=== PATIENT | female | born 2000 | race Caucasian/White ===

== ENCOUNTER 2025-01-21 16:31 | Emergency (ER) | payer OTHER, SELFPAY ==
[2025-01-21 16:36] VITALS: BP 121/60; PULSE 71; TEMP 36.8; O2SAT 99
--- NOTE | 2025-01-21 16:50 | ED.GENADUL1 ---
HPI HPI - General Adult General Stated complaint: SE BY DOCTOR TANIA Time Seen by Provider: 01/21/25 16:43 Source: patient Mode of arrival: walk-in History of Present Illness HPI narrative: The patient is a 24-year-old female who presents to the emergency department today for evaluation concerns for nausea and vomiting in the setting of first trimester . She endorses she found out she was on 01/18. She reports she has documented IUP with twins and reports her LMP to be 12/03 (). She endorses she has had symptoms of nausea/vomiting over the past few days. She mention she was at [facility] yesterday for the symptoms in which she received IV fluids and antiemetics and felt overall better. She mention she was seen by her EDUCATIONAL TECHNOLOGY COORDINATOR today and subsequent advised to come to the ER for additional IV fluids due to ongoing nausea and vomiting despite taking Zofran at home. Dizziness or syncope. No chest pain, shortness of breath. She does endorse some lower abdominal discomfort but attributes this to having episodes of emesis. She denies any diarrhea. No urinary symptoms or back/flank pain. She denies any vaginal discharge or bleeding. Related Data Allergies Allergy/AdvReac Type Severity Reaction Status Date / Time No Known Drug Allergies Allergy Verified 01/21/25 17:14 Opioid HPI Opioid Management Most Recent Opioid Data: Last Pain Scale 6 Today, 16:36 Review of Systems ROS Status of ROS 10 or more systems reviewed and unremarkable except as noted in history and below PFSH PFSH Social History Little interest or pleasure in doing things: not at all Feeling down, depressed, or hopeless: not at all Exam Narrative Exam Narrative: Constituational: Awake/ alert, no apparent distress, well hydrated HENMT: normocephalic, external ears normal, moist oral mucous membranes and oropharynx normal Eyes: EOMI and conjunctivae normal Neck: ROM intact Chest: inspection of chest normal Respiratory: Normal respiratory effort, clear to auscultation bilaterally Cardio: regular rate and regular rhythm GI: soft to palpation and non-tender Back: nontender MSK: ROM intact, +NVI Skin: no rashes or petechiae Neuro: no focal deficits Psych: mental status grossly normal Constitutional Vital Signs, click to edit/add: Last Vital Signs Temp 98.2 F 01/21/25 16:36 Pulse 71 01/21/25 16:36 Resp 20 07/08/25 16:36 BP 121/60 01/21/25 16:36 Pulse Ox 99 01/21/25 16:36 O2 Del Method Room Air 01/21/25 16:36 Course Vital Signs Vital signs: Vital Signs Temperature 98.2 F 01/21/25 16:36 Pulse Rate 71 01/21/25 16:36 Respiratory Rate 20 01/21/25 16:36 Blood Pressure 121/60 01/21/25 16:36 Pulse Oximetry 99 01/21/25 16:36 Oxygen Delivery Method Room Air 01/21/25 16:36 Temperature 98.2 F 01/21/25 16:36 Pulse Rate 71 01/21/25 16:36 Respiratory Rate 20 01/21/25 16:36 Blood Pressure 121/60 01/21/25 16:36 Pulse Oximetry 99 01/21/25 16:36 Oxygen Delivery Method Room Air 01/21/25 16:36 Medical Decision Making MDM Narrative Medical decision making narrative: The patient is a nontoxic-appearing 24-year-old female who presented to the emergency department today for evaluation concerns for nausea and vomiting in early . Initial examination vital signs overall stable. Not appear obviously volume depleted. Complaints other than some mild nausea. Historically patient had been seen by her EDUCATIONAL TECHNOLOGY COORDINATOR and advised to come to the ER for IV fluid replacement. Did receive a liter of IV fluids in addition to Zofran and on reevaluation she reports an overall improvement in general condition. Labs noted significant for mild leukocytosis with WBCs 12 otherwise no significant anemia or thrombocytopenia. Leukocytosis likely reactive 2/2 nausea and vomiting episodes. Electrolytes including renal and hepatic function overall stable with exception to noted hypokalemia with serum K3.0. Patient did receive supportive measures of oral potassium replacement of 40 mEq x 1 dose. Patient was reevaluated multiple times while in the ER and did have clinical improvement with supportive measures as above and was able to keep down some oatmeal in addition to the potassium tablets in the ER. She has otherwise remained hemodynamically stable. Discussed the above findings with the patient and her mother who was present at the bedside including recommendations for supportive care, nausea and vomiting first trimester with hypokalemia. Advised on close follow-up with her EDUCATIONAL TECHNOLOGY COORDINATOR for reevaluation. Patient states she does have Phenergan ordered however it will not be available until tomorrow. Discussed signs and symptoms of any worsening condition and when to consider reevaluation by the emergency department. Patient verbalized an understanding of this and is agreeable with the plan to be discharged home. Medical Records Medical records reviewed: Yes I reviewed the patient's medical records Lab Data Lab results reviewed: Yes I reviewed the patient's lab results Labs: Lab Results 01/21/25 01/21/25 Range/Units 17:10 17:20 WBC 12.3 H (4.0-11.0) 10^3/uL RBC 4.09 L (4.20-5.40) 10^6/uL Hgb 12.4 (12.0-16.0) g/dL Hct 35.5 L (36.0-48.0) % MCV 86.8 (81.0-99.0) fL MCH 30.3 (26.7-34.0) pg MCHC 34.9 (29.9-35.2) g/dL RDW 12.5 (11.0-15.0) % Plt Count 242 (150-450) 10^3/uL MPV 9.7 (9.5-13.5) fL Neut % (Auto) 78.8 H (43.0-75.0) % Lymph % (Auto) 14.6 L (20.5-60.0) % [place] % (Auto) 5.7 (1.7-12.0) % Eos % (Auto) 0.1 L (0.9-7.0) % Baso % (Auto) 0.4 (0.2-2.0) % Neut # (Auto) 9.7 H (1.4-6.5) 10^3/uL Lymph # (Auto) 1.8 (1.2-3.8) 10^3/uL [place] # (Auto) 0.7 (0.3-0.8) 10^3/uL Eos # (Auto) 0.0 (0.0-0.7) 10^3/uL Baso # (Auto) 0.1 (0.0-0.1) 10^3/uL Abs Immat Gran (auto) 0.05 H (0.00-0.03) 10^3/uL Imm/Tot Granulo (auto) 0.4 (0.0-0.5) % Sodium 137 (136-145) mmol/L Potassium 3.0 L (3.5-5.1) mmol/L Chloride 101 (98-107) mmol/L Carbon Dioxide 27.6 (21.0-32.0) mmol/L Anion Gap 11.4 BUN 7.0 (7.0-18.0) mg/dL Creatinine 0.56 (0.55-1.02) mg/dL Est GFR ( Amer) >60 (>=60 mL/min/1.73m^2) Est GFR (Non-Af Amer) >60 (>=60 mL/min/1.73m^2) BUN/Creatinine Ratio 12.5 Glucose 169 H (74-106) mg/dL Calcium 9.0 (8.5-10.1) mg/dL Total Bilirubin 1.1 H (0.2-1.0) mg/dL AST 10 L (15-37) U/L ALT 14 (14-59) U/L Alkaline Phosphatase 43 L (46-116) U/L Total Protein 6.6 (6.4-8.2) g/dL Albumin 3.6 (3.4-5.0) g/dL Globulin 3.0 g/dL Albumin/Globulin Ratio 1.2 Urine Color Lt. yellow (YELLOW) Urine Clarity Clear (CLEAR) Urine pH 6.0 (5.0-9.0) Ur Specific [place] <=1.005 A (1.005-1.025) Urine Protein Negative (NEG/TRACE) mg/dL Urine Glucose (UA) Negative (NEGATIVE) mg/dL Urine Ketones >=80 A (NEGATIVE) mg/dL Urine Occult Blood Negative (NEGATIVE) Urine Nitrite Negative (NEGATIVE) Urine Bilirubin Negative (NEGATIVE) Urine Urobilinogen 0.2 (0.2-1.0) EU/dL Ur Leukocyte Esterase Negative (NEGATIVE) Discharge Plan Discharge Clinical Impression: Nausea and vomiting in , Acute hypokalemia Patient Disposition: Home, Self-Care Print Language: Pashto Instructions: Hypokalemia (ED), Acute Nausea and Vomiting (ED) Additional Instructions: Continue your Zofran as needed. May use [id number] vitamin B6 10-25mg every 6-8 hours in addition to help with nausea. We continue to use eric containing foods and hard candies to suck on. Push fluids including Gatorade. Please follow-up closely with EDUCATIONAL TECHNOLOGY COORDINATOR: For reevaluation as discussed. May return to the ER with any new or worsening symptoms/concerns. Referrals: BECKY SMILEY [Primary Care Provider, Family Practice] - 1 week
[2025-01-21] MEDS: 0.9 % SODIUM CHLORIDE 1,000 ML 1000 ML IV (17:08)
[2025-01-21 17:26] LABS: Hematocrit 35.5 % (36.0-48.0); Hemoglobin 12.4 g/dL (12.0-16.0); Immature Granulocytes Abs Auto 0.05 10^3/uL (0.00-0.03); Immature Granulocytes Pct Auto 0.4 % (0.0-0.5); Lymphocytes Absolute Auto 1.8 10^3/uL (1.2-3.8); Mean Corpuscular HGB Conc 34.9 g/dL (29.9-35.2); Mean Corpuscular Hemoglobin 30.3 pg (26.7-34.0); Mean Corpuscular Volume 86.8 fL (81.0-99.0); Platelet Count 242 10^3/uL (150-450); Red Blood Count 4.09 10^6/uL (4.20-5.40); White Blood Count 12.3 10^3/uL (4.0-11.0)
[2025-01-21 17:30] LABS: Glucose Urine UA NEGATIVE (NEGATIVE)
[2025-01-21 17:37] LABS: Alanine Aminotransferase 14 U/L (14-59); Albumin Globulin Ratio 1.2; Albumin Level 3.6 g/dL (3.4-5.0); Alkaline Phosphatase 43 U/L (46-116); Anion Gap 11.4; Aspartate Amino Transferase 10 U/L (15-37); Blood Urea Nitrogen 7.0 mg/dL (7.0-18.0); Calcium 9.0 mg/dL (8.5-10.1); Carbon Dioxide 27.6 mmol/L (21.0-32.0); Chloride 101 mmol/L (98-107); Estimated GFR (African America >60 (>=60 mL/min/1.73m^2); Estimated GFR (Non-African Ame >60 (>=60 mL/min/1.73m^2); Globulin 3.0 g/dL; Glucose 169 mg/dL (74-106); Potassium 3.0 mmol/L (3.5-5.1); Sodium 137 mmol/L (136-145); Total Protein 6.6 g/dL (6.4-8.2)
[2025-01-21] MEDS: POTASSIUM CHLORIDE 10 MEQ ER TABLET 40 MEQ PO (18:01)
[2025-01-21 19:13] VITALS: BP 101/52; PULSE 54; O2SAT 99
== END 2025-01-21 19:16 | disposition home or self-care (01) ==
PROVIDERS: Nurse Practitioner; Emergency Provider Emergency Medicine; PCP Family Medicine
DX: O21.9 Vomiting of pregnancy, unspecified (principal); O30.001 Twin pregnancy, unspecified number of placenta and unspecified number of amniotic sacs, first trimester; O99.281 Endocrine, nutritional and metabolic diseases complicating pregnancy, first trimester; Z3A.00 Weeks of gestation of pregnancy not specified; E87.6 Hypokalemia
CPT/HCPCS: 36415; 80053; 81003; 85025; 96361; 96374; 99285; J2405

== ENCOUNTER 2025-02-06 14:02 | Outpatient (RCR) | payer OTHER, SELFPAY ==
--- OUTSIDE RECORDS SUMMARY | 2025-02-06 14:04 | XMS_ITS | Encounter Summary ---
Author Organization [facility] Address [address] [place] [address] Phone Care Team Providers Care Device Processing Engineer Name Role Phone Evette Reeves Primary Care Provider [phone] Encounter Details Date Type Department Care Team (Late st Contact Info) Description 08/04/2017 Orders Only [facility] [address] [place] [address] Conversion, Onbase Social History Tobacco Use Types Packs/Day Years Used Date Smoking Tobacco: Never Assessed Comments Unknown Sex and Gender Information Value Date Recorded Sex Assigned at Not on file Legal Sex Female 5:49 PM EST Gender Identity Not on file Sexual Orientation Not on file documented as of this encounter Plan of Treatment Scheduled Orders Name Type Priority Associated Diagnoses Orde r Schedule OUTSIDE LAB SCAN Lab Ordered: 08/04/2017 documented as of this encounter Visit Diagnoses Not on filedocumented in this encounter Care Teams Device Processing Engineer Relationship Specialty Start Date End Date Evette Reeves APRN-CNP [address] [place] [address] PCP - General 06/01/17 documented as of this encounter
== END 2025-02-13 17:04 | disposition home or self-care (01) ==
LOC: LAB 14:02
PROVIDERS: PCP Family Medicine; Visit Provider Physician Assistant
DX: Z51.81 Encounter for therapeutic drug level monitoring (principal); O03.9 Complete or unspecified spontaneous abortion without complication
CPT/HCPCS: 36415; 84702

== ENCOUNTER 2025-02-10 13:06 | Outpatient (OUT) | payer OTHER, SELFPAY ==
[2025-02-10 14:05] LABS: Hematocrit 38.3 % (36.0-48.0); Hemoglobin 13.3 g/dL (12.0-16.0); Immature Granulocytes Abs Auto 0.03 10^3/uL (0.00-0.03); Immature Granulocytes Pct Auto 0.3 % (0.0-0.5); Lymphocytes Absolute Auto 2.2 10^3/uL (1.2-3.8); Mean Corpuscular HGB Conc 34.7 g/dL (29.9-35.2); Mean Corpuscular Hemoglobin 30.4 pg (26.7-34.0); Mean Corpuscular Volume 87.6 fL (81.0-99.0); Platelet Count 247 10^3/uL (150-450); Red Blood Count 4.37 10^6/uL (4.20-5.40); White Blood Count 10.6 10^3/uL (4.0-11.0)
== END 2025-02-10 13:07 | disposition home or self-care (01) ==
LOC: PST 13:08
PROVIDERS: PCP Family Medicine; Visit Provider Obstetrics & Gynecology
DX: Z01.812 Encounter for preprocedural laboratory examination (principal); O02.1 Missed abortion
CPT/HCPCS: 36415; 84702; 85025; 86850; 86900; 86901

== ENCOUNTER 2025-02-11 06:48 | Day surgery (SDC) | payer OTHER, SELFPAY ==
[2025-02-10 13:37] VITALS: BP 106/69; PULSE 77; TEMP 36.4; O2SAT 99; BMI 21.0
[2025-02-11] VITALS (12 sets, daily range): BP systolic 111–141; BP diastolic 63–93; PULSE 65–115; TEMP 36.3–36.6; O2SAT 97–100; BMI 21.0
--- NOTE | 2025-02-11 07:11 | US_ITS ---
The [address] [address] Patient Name: LUKE OVIEDO MRN: [id number] date: 2000 Sex: F Assigned Patient Location: [facility] Current Patient Location: [facility] Accession/Order Number: [id number] Exam Date: 02/11/2025 07:51 Report Date: 02/11/2025 08:15 At the request of: DEBI MCCULLOUGH DO Procedure: US OB <= 14 weeks fetus FIRST TRIMESTER OB ULTRASOUND CLINICAL DATA: Follow-up after demise of twin prior to D&C COMPARISON: None The pelvis was evaluated with a transabdominal approach. There is a gestational sac within the uterus. Two poles are present. The crown-rump length for fetus A measures 1.7 cm correlating with an ultrasound age of 8 weeks 1 day. The crown-rump length for fetus B measures 1.5 cm correlating with gestational age of 7 weeks 6 days. No cardiac activity was documented for either fetus. The right ovary was identified. It measures 8.2 x 5.9 x 7.9 cm in size. It contains a large cyst measuring 6.5 x 4.0 x 7.2 cm. Ovarian blood flow is documented. The left ovary was not seen. No free fluid is noted. US/US OB <= 14 weeks fetus IMPRESSION: NONVIABLE TWIN WITH ULTRASOUND AGE OF APPROXIMATELY 8 WEEKS AND 0 DAYS BASED ON TODAY'S MEASUREMENTS. INCIDENTAL LARGE RIGHT OVARIAN CYST. Impression dictated by: Araceli King M.D. 02/11/2025 8:15 AM Dictation Location: [place] [address] Electronically authenticated by: [id number] Y Date: 02/11/2025 08:15
--- NOTE | 2025-02-11 08:20 | US_ITS ---
[address] [address] Patient Name: LUKE OVIEDO MRN: [id number] date: 2000 Sex: F Assigned Patient Location: [facility] Current Patient Location: [facility] Accession/Order Number: [id number] Exam Date: 02/11/2025 09:19 Report Date: 02/11/2025 09:28 At the request of: DEBI FERNÁNDEZ DO Procedure: US pelvis INTRAOPERATIVE PELVIC ULTRASOUND CLINICAL DATA: D&C for twin demise. COMPARISON: 02/11/2025 Ultrasound evaluation of the pelvis was performed in the operating room during performance of D&C by Dr. Fernández. Initial images show heterogeneous contents within the endometrial lining. At the completion of study, there is a trace amount of fluid within the endometrial canal though no obvious retained products of conception. US/US pelvis IMPRESSION: NO DEFINITE RETAINED PRODUCTS OF CONCEPTION. Impression dictated by: Araceli King M.D. 02/11/2025 9:28 AM Dictation Location: [place] [address] Electronically authenticated by: [id number] Y Date: 02/11/2025 09:28
[2025-02-11] MEDS: HYDROCODONE/ACET 5-325 MG TABLET 1 TAB PO (09:37)
--- NOTE | 2025-02-11 09:39 | PC.NURSE ---
0937- Patient c/o abdominal pain. Medicated with Hydrocodone as ordered for pain
--- NOTE | 2025-02-18 07:57 | P.ON_ITS ---
Brief Operative Note Date of procedure: 02/11/25 Pre-op diagnosis general: first trimester missed , large rt ovarian cyst 8cm, pelvic pain Procedure: NAME OF PROCEDURE: [D&C suction, diagnostic laparoscopy with rt ovarian cystectomy] PROCEDURE: The patient was taken back to the OR where she was given general anesthesia without difficulty. She was then placed in dorsal lithotomy position, prepped and draped in the normal sterile fashion. A weighted speculum was placed in the patient's vagina and the anterior lip of the cervix was identified and grasped with a single-tooth tenaculum. The patient was then gently dilated using Hegar dilators after we had sounded roughly to 12 cm. The suction curette was then tested. The suction curette was then placed in the patient's uterus and products of conception were removed using an 10-Syrian suction curette. ?Excellent hemostasis was noted. Attention was turned to the patient's abdomen, where a small umbilical incision was made. The fascia was tented using Rex clamps and the fascia was entered sharply. Confirmation of intraabdominal placement of the 10 mm port was confirmed under direct visualization using a laparoscope. The patient's abdomen was then insufflated using CO2 gas with approximately 4 liters. A second port was placed left laterally, this was done under direct visualization with a 5 mm port. Survey of the patient's abdomen demonstrated normal liver and gallbladder. Survey of the patient's pelvic anatomy demonstrated normal appearing lt ovary and rt and lt tubes as well as normal appearing uterus. large 8cm rt ovarian cyst, the ligasure was used to drain and perform rt ovarian cystectomy, excellent hemostasis No endometrial implants could be noted, no evidence of any pelvic disease was seen, normal appearing pelvic cavity. All instruments were removed from the patient's abdomen. The patient's abdomen was deinsufflated of CO2 gas. The patient tolerated the procedure well. Sponge stick was removed from the patient's vagina. The patient's infraumbilical fascia was closed using #0 Vicryl on a GI needle. The patient's skin was closed laterally and infraumbilically using 4-0 Vicryl. The patient tolerated the procedure well. Sponge, lap and needle counts were correct x 2. The patient was taken to Recovery Room in stable condition. ?? Anesthesia: ERNIE Surgeon: Victor M Fernández [employer] Analyst: Amalia Mclaughlin Estimated blood loss (mL): 5 Pathology: other (rt cyst wall, products of conception) Condition: stable Disposition: PACU Urinary Catheter Management Urinary Catheter Management Urethral: Cath placed during this visit: no
== END 2025-02-11 10:35 | disposition home or self-care (01) ==
PROVIDERS: PCP Family Medicine; Visit Provider Obstetrics & Gynecology
PROC: (CPT 00840; principal; 2025-02-11 08:00)
DX: O02.1 Missed abortion (principal); N83.201 Unspecified ovarian cyst, right side; R10.2 Pelvic and perineal pain; Z87.891 Personal history of nicotine dependence; F41.9 Anxiety disorder, unspecified
CPT/HCPCS: 00840; 01965; 58662; 59820; 36415; 76801; 76856; 88112; 88305; 99999; J0131; J1100; J1171; J1885; J2250; J2405; J2590; J2704; J3010

== ENCOUNTER 2025-02-19 11:31 | Outpatient (RCR) | payer OTHER, SELFPAY | END 2025-03-15 23:59 | disposition home or self-care (01) | LOC: LAB 11:31 | PROVIDERS: PCP Family Medicine; Visit Provider Obstetrics & Gynecology | DX: O03.9 Complete or unspecified spontaneous abortion without complication (principal) | CPT/HCPCS: 36415; 84702 ==

== ENCOUNTER 2025-05-28 20:39 | Outpatient (REF) | payer OTHER, SELFPAY ==
--- OUTSIDE RECORDS SUMMARY | 2021-04-19 11:35 | XMS_ITS | Continuity of Care Document ---
Author Organization [facility] Address [address] [place] [address] Phone Care Team Providers Care Crystal Lapper Name Role Phone Viet Cordova MD Unavailable Unavailable Procedures Procedure Date AUGUSTINE COVID VACCINE J&J AUGUSTINE ADMIN .5ML Advance Directives Directive Yes / No Effective Date File Name No Information Encounters Encounter Description Practice Location Reason(s) For Visit Diagnoses Date Provider Providers Copied on Encounter [facility] , [address] [place], [place], [id number], tel:[phone] [facility] Dept Immunization No Information Art Llanos. [address] [place], [place], [id number] , [place]. tel:[phone] Family History Family Member Type Diagnosis Age At Onset No Information Immunizations Vaccine Date Status Comments Augustine administered Note: TPVALL ; Source: New Immunization Record Payers Payer name Insurance type Covered green party ID Authoriza tion(s) No Information Social History Type Description Quantity Date Captured Comments Sex Female Smoking Status No Information Chief Complaint And Reason For Visit No Information Reason For Referral Reason For Referral No Information History Of Present Illness Encounter Date Complaint History Of Prese nt Illness No Information Functional Status Date Functional Assessmen t No Information Instructions Date Instruction Additional Infor mation No Information Assessments Type Assessment Date No Information Patient Care Teams Name Effective Dates (start - stop) Status Members No Information
--- OUTSIDE RECORDS SUMMARY | 2022-05-04 09:49 | XMS_ITS | Continuity of Care Document ---
Author Organization [facility] Address [address] [place] [address] Phone Care Team Providers Care Tester Regulator Name Role Phone Meghna Gr MD Unavailable Unavailable Allergies, Adverse Reactions, Alerts Substance Reaction Status Criticality No Known Allergies Active No Inform ation Medications Medication Instructions Dosage Effective Dates (start - stop) Status Comments Xulane 150 mcg-35 mcg/24 hr transdermal patch apply 1 patch by transdermal route every week 1.00 patch - Active fluconazole 150 mg tablet take 1 tablet by oral route once 150 MG - Active Xulane 150 mcg-35 mcg/24 hr transdermal patch apply 1 patch by transdermal route every week 1.00 patch - No Longer Active Procedures Procedure Date Init Preven Meds E&m New Pt; 18-39 Advance Directives Directive Yes / No Effective Date File Name No Information Encounters Encounter Description Practice Location Reason(s) For Visit Diagnoses Date Provider Providers Copied on Encounter [facility], [address], [place], [place], [id number], [place] tel:[phone] DANISHAFernanda Díazfrancisc[facility] Materials Handling Coordinator No Information Simón Coffman. [address] [place] [address], [id number] , [place]. tel:[phone] [facility], [address], [place], [place], [id number], [place] tel:[phone] MARRY Frankie Fitowayne [facility] Materials Handling Coordinator No Information 2 Rafael Sauceda. [facility] [place], [place], [id number] , [place]. tel:[phone] Init Preven Meds E&m New Pt; 18-39 [facility], [address], [place], [place], [id number], [place] tel:[phone] MARRY Frankie Lerma [facility] Materials Handling Coordinator annual exam (chief complaint)v aginal discharge/i tching (chief complaint) Encounter for gynecological examination (general) (routine) without abnormal findings 2 Simón Coffman. [facility] [place], [place], [id number] , [place]. tel:[phone] Family History Family Member Type Diagnosis Age At Onset No Information Payers Payer name Insurance type Covered green party ID Authoriza tieliud(s) [facility] [place] [id number] Social History Type Description Quantity Date Captured Comments Alcohol Use Details Unknown Caffeine Use Details Unknown Tobacco Use Status No Information Smoking Status No Information Sex Female Chief Complaint And Reason For Visit No Information Reason For Referral Reason For Referral No Information History Of Present Illness Encounter Date Complaint History Of Prese nt Illness vaginal discharge/itching Presen tly the patient is experiencing vaginal discharge. Presently the patient is not experiencing vaginal itching, vaginal irritation and vaginal odor. Last menstrual period was 11/09/2021. Relevant factors include condom use.The patient has no history of bacterial vaginosis, chlamydia, gonorrhea, trichomoniasis or yeast. She denies dyspareunia, vaginal burning, dysuria, urinary frequency, genital lesions, genital rash or vulvar itching. annual exam The patient stat es she uses condoms, male for control. Last LMP was 11/09/2021. Her menses is regular with normal flow with a frequency of every 28 days. Negative for dysmenorrhea and menorrhagia. Negative for: breast discharge, breast lump(s) and breast pain. Pertinent negatives include anxiety, depression, dyspareunia, urinary incontinence, vaginal discharge and vaginal itching. The patient does not use tobacco. She does not drink alcohol. Additional information: Has tried sprintec and blisovi for BC. Intense nausea and vomiting with both so stopped last month. Friends with IUD but nervous to start there. interested in patch . Functional Status Date Functional Assessmen t No Information Instructions Date Instruction Additional Infor chikis Pap starting age 21V aginitis and STD panel for vaginal discharge Xulane patch rx sent Return 1 year. Related to Encounter for gynecological examination (general) (routine) without abnormal findings Assessments Type Assessment Date No Information Patient Care Teams Name Effective Dates (start - stop) Status Members No Information
--- OUTSIDE RECORDS SUMMARY | 2025-05-28 15:40 | XMS_ITS | Encounter Summary ---
Author Organization [facility] Address [address] [facility] [place] [address] Care Team Providers Care Freight Elevator Operator Name Role Phone Prieto Heaton DO Primary Care Provider [phone] Reason for Visit * ReasonCommentsGynecologic Exam Encounter Details DateTypeDepartmentCare Team (Latest Contact Info)Klwdzneboxt51/12/2025 3:40 PM ESTProcedure Visit [facility] [address] [place] [address] Victor M Fernández DO [address] Nahid Briones, [facility]11 Well woman exam with routine gynecological exam Social History Tobacco UseTypesPacks/DayYears UsedDateSmoking Tobacco: NeverAlcohol UseStandard Drinks/WeekCommentsNot Currently0 (1 standard drink = 0.6 oz pure alcohol) CommentsNoSex and Gender InformationValueDate RecordedSex Assigned at BirthNot on fileLegal MlgKxpmjg37/15/2023 8:11 PM EDTGender IdentityNot on file Sexual OrientationNot on filedocumented as of this encounter Last Filed Vital Signs Vital SignReadingTime TakenCommentsBlood Oglbsklg561/7005/28/2025 4:10 PM EST Pulse--Temperature--Respiratory Rate--Oxygen Saturation--Inhaled Oxygen Concentration--Hjmpsw06.2 kg (124 lb)05/28/2025 4:10 PM ESTHeight--Body Mass Index21.28012/08/2022 1:35 PM EDTdocumented in this encounter Progress Notes * Kat Velez NP - 05/28/2025 3:40 PM EST Reason for Appointment: Patient ID: Dano Handley is a 24 y.o. female who presents for Gynecologic Exam Patient presents today for Annual Exam. MEDICATIONS No current outpatient medications ALLERGIES No Known Allergies PROBLEMS Active Ambulatory Problems Diagnosis Date Noted Menorrhagia with regular cycle 12/08/2022 Dysmenorrhea in adolescent 12/08/2022 Resolved Ambulatory Problems Diagnosis Date Noted No Resolved Ambulatory Problems No Additional Past Medical History HISTORY PAST MEDICAL HISTORY SOCIAL HISTORY No past medical history on file. Social History Tobacco Use Smoking status: Never Smokeless tobacco: Not on file Substance Use Topics Alcohol use: Not Currently Drug use: Never FAMILY HISTORY No family history on file. SURGICAL HISTORY Past Surgical History: Procedure Laterality Date DILATION AND CURETTAGE OF UTERUS 02/11/2025 ovarian cyst and missed REVIEW OF SYSTEMS Review of Systems: Review of Systems Constitutional: Negative. HENT: Negative. Eyes: Negative. Respiratory: Negative. Cardiovascular: Negative. Gastrointestinal: Negative. Genitourinary: Negative. Musculoskeletal: Negative. Skin: Negative. Neurological: Negative. All other systems reviewed and are negative. Hematological: Negative. Endocrine: Negative. Allergic/Immunologic: Negative. OBJECTIVE Objective: Physical Exam Constitutional: Appearance: Normal appearance. She is well-developed. Genitourinary: Vulva normal. Breasts: Breasts are soft. Right: Normal. Left: Normal. Cardiovascular: Rate and Rhythm: Normal rate and regular rhythm. Pulmonary: Effort: Pulmonary effort is normal. Breath sounds: Normal breath sounds. Abdominal: General: Bowel sounds are normal. There is no distension. Palpations: Abdomen is soft. Tenderness: There is no abdominal tenderness. There is no guarding or rebound. Musculoskeletal: General: No swelling. Normal range of motion. Right lower leg: No edema. Left lower leg: No edema. Neurological: Mental Status: She is alert and oriented to person, place, and time. Skin: General: Skin is warm and dry. Psychiatric: Mood and Affect: Mood normal. Behavior: Behavior normal. Vitals and nursing note reviewed. Exam conducted with a potato grader present. Vitals: Estimated body mass index is 21.28 kg/m?? as calculated from the following: Height as of 12/08/22: 5' 4 . Weight as of this encounter: 124 lb. BP: 110/70 Patient's last menstrual period was 05/23/2025 (approximate). Assessment/Plan ICD-10-CM 1. Well woman exam with routine gynecological exam Z01.419 Pap Smear Assessment/Plan Annual Exam: Patient presents today for an annual exam. Patient states she is doing well and has no complaints. Pap was obtained without difficulty. No orders of the defined types were placed in this encounter. Follow Up: Patient is to return in one year for annual unless needed otherwise. Documented by Kat Velez NP on behalf of: Victor M Fernández DO documented in this encounter Plan of Treatment NameTypePriorityAssociated DiagnosesOrder SchedulePap SmearPathology and CytologyRoutine Well woman exam with routine gynecological exam Ordered: 05/28/2025documented as of this encounter Visit Diagnoses Diagnosis Well woman exam with routine gynecological exam Routine gynecological examination documented in this encounter Care Teams Team MemberRelationshipSpecialtyStart DateEnd Date Prieto Heaton DO [address] [place] [id number] PCP - GeneralFamily Medicine12/08/22documented as of this encounter
--- OUTSIDE RECORDS SUMMARY | 2025-05-28 20:47 | XMS_ITS | Clinical Summary ---
Author Organization [facility] Address [address] [place] [address] Care Team Providers Care Senior Marketing Associate Name Role Phone Unavailable Primary Care Provider Unavailabl e Allergies No known active allergies Medications MedicationSigDispense QuantityRefillsLast FilledStart DateEnd DateStatus hydrocortisone 1 % Cream cream Apply to under arm twice a day for itching x next 3 days then stop. 1.5 g 04/23/2021ctive contraceptive, oral Take by mouth.Active Social History Tobacco UseTypesPacks/DayYears UsedDateSmoking Tobacco: Never Assessed CommentsNoSex and Gender InformationValueDate RecordedSex Assigned at BirthNot on fileLegal UnvFmljuq20/08/2021 2:39 PM EDTGender IdentityNot on fileSexual OrientationNot on file Last Filed Vital Signs Vital SignReadingTime TakenCommentsBlood Hpyityso779/6010 12:34 PM EDT Btfed7459 12:34 PM IGTMtcukmdmvqt70.7 ??C (98 ??F)05/13/2021 12:34 PM EDTRespiratory Gqkg0913 12:34 PM EDTOxygen Rjotzvgbko163%05/13/2021 12:34 PM EDTInhaled Oxygen Concentration--Weight--Ssxnej383.6 cm (5' 4 ) 04/23/2021 2:57 PM EDTBody Mass Index-- Plan of Treatment Health MaintenanceDue DateLast DoneCommentsGONORRHEA GYDMXE50 2002HEPATITIS C VIRUS JXANVOHUJ50/27/2003HIV SCREENING QPGPNJEJGD86/27/2018CHLAMYDIA SCREEN 2018CERVICAL CANCER SCREENING UVISLKSKNY19/27/2024COVID-19 VACCINE ( season)2025INFLUENZA VACCINE (#1)03/17/20252343UULBFCB23/21/2026 02/04/2016, 11/28/2007, 09/03/2003, Additional history existsHEP B VACCINE Fpursdjoy75/11/2003, 02/24/2003, 2002, Additional history exists PNEUMOCOCCAL VACCINE SERIESAged Out09/03/2003, 02/24/2003, 2002, Additional history existsNo longer eligible based on patient's age to complete this topicTDAP (ADULT)Urgxzwquh71/21/2016, 11/28/2007, 09/03/2003, Additional history existsHPV VACCINE BSKGXetacgrup47/02/2017, 04/06/2016, 03/25/2016, Additional history existsHPV IDCJEUCNebtnucqx74/02/2017, 04/06/2016, 03/25/2016, Additional history existsMCV4 HMLUMRLEtyjmqefvidh76/10/2020, 04/06/2016, 02/04/2016 Insurance
--- OUTSIDE RECORDS SUMMARY | 2025-05-28 20:47 | XMS_ITS | Clinical Summary ---
Author Organization [facility] Address [address] [place] [address] Care Team Providers Care Chicken Stuffer Name Role Phone John Mauricio MD Primary Care Provider [phone] Medications MedicationSigDispense QuantityRefillsLast FilledStart DateEnd DateStatus clindamycin-benzoyl peroxide (ONEXTON) 1.2 %(1 % base) -3.75 % glwp Apply to affected area once daily. 50 g 10/19/2020ctive doxycycline hyclate (VIBRAMYCIN) 100 mg capsule Indications:Acne vulgarisTake 1 capsule by mouth daily with food. 30 capsule 10/19/2020 2:37 PM EDT10/19/2020ctive norgestimate 0.25 mg-ethinyl estradiol 35 mcg (SPRINTEC, ORTHO-CYCLEN) 0.25-35 mg-mcg per tablet take 1 tablet by mouth once daily 84 tablet 2:55 PM EDT12/03/2020ctive norgestimate 0.25 mg-ethinyl estradiol 35 mcg (JERILYN) 0.25-35 mg-mcg per tablet Take 1 tablet by mouth once daily 84 tablet ctive clindamycin-benzoyl peroxide (ONEXTON) 1.2 %(1 % base) -3.75 % glwp Indications:Acne vulgarisApply to affected area once daily. 150 g 02/25/2021ctive Clindamycin-Benzoyl Peroxide 1-5 % gel Indications:Acne vulgarisApply to face daily. 50 g 03/12/2021 2:48 PM EDT03/10/2021ctive norgestimate 0.25 mg-ethinyl estradiol 35 mcg (SPRINTEC, ORTHO-CYCLEN) 0.25-35 mg-mcg per tablet Take 1 tablet by mouth once daily. 84 tablet 2:48 PM EDT03/11/2021ctive norgestimate 0.25 mg-ethinyl estradiol 35 mcg (SPRINTEC, ORTHO-CYCLEN) 0.25-35 mg-mcg per tablet Take 1 tablet by mouth daily 84 tablet 06/08/2021 12:53 PM EST06/01/2021ctive Clindamycin-Benzoyl Peroxide 1-5 % gel Apply to face daily. 50 g 12:08 PM EST07/02/2021ctive Clindamycin-Benzoyl Peroxide (NEUAC) 1.2 %(1 % base) -5 % gel Apply to face every morning 45 g 2:22 PM EDT01/25/2022ctive Ethinyl Estradiol-Norelgestrom (XULANE) 150-35 mcg/24 hr patch Apply 1 patch every week for 3 weeks, week 4 is patch free 9 Patch 3:09 PM EST11/26/2021ctive Norethin Herman-Eth Estrad-FE (LOESTRIN FE 08/05) 1 mg-20 mcg (21)/75 mg (7) per tablet Take 1 tablet by mouth once daily 28 tablet 09/10/2021ctive Clindamycin-Benzoyl Peroxide (NEUAC) 1.2 %(1 % base) -5 % gel Apply to affected area every morning. 45 g 9:25 AM EDT1ctive Ethinyl Estradiol-Norelgestrom (XULANE) 150-35 mcg/24 hr patch apply 1 patch by transdermal route every week 9 Patch 4:20 PM EDT1ctive dexAMETHasone (DECADRON) 0.75 mg tablet take as directed on paper gives you 15 tablet 06/22/2022ctive ibuprofen (IBU) 600 mg tablet Take 1 tablet by mouth every 6 hours. 15 tablet 9:56 AM EST06/22/2022ctive promethazine (PHENERGAN) 25 mg tablet Take 1 tablet by mouth every 6 hours as needed. 2 tablet 9:56 AM EST06/22/2022ctive methylPREDNISolone (MEDROL, FLORIN,) 4 mg Dose-Pack Take as directed 21 tablet 06/22/2022 9:56 AM EST06/22/2022ctive minocycline (MINOCIN, DYNACIN) 100 mg capsule Take one capsule by mouth every night. 30 capsule 1:05 PM EST04/21/2023ctive Clindamycin-Benzoyl Peroxide (NEUAC) 1.2 %(1 % base) -5 % gel Apply to face every morning 45 g 3:57 PM EDT1ctive spironolactone (ALDACTONE) 50 mg tablet Take 1 tablet by mouth once daily. 30 tablet 3:34 PM EST06/02/2023ctive citalopram hydrobromide (CELEXA) 10 mg tablet Take 1 tablet by mouth once daily. 30 tablet 3:34 PM EDT01/23/2024ctive ondansetron (ZOFRAN) 4 mg tablet Take 1 tablet by mouth every 8 hours as needed for nausea and vomitting. 30 tablet 01/23/2024 11:39 AM EDT01/23/2024ctive ALPRAZolam (XANAX) 0.25 mg tablet Take 1 tablet by mouth once daily. 30 tablet 02/28/2024 3:56 PM EDT02/27/2024ctive citalopram (CELEXA) 20 mg tablet Take 1 tablet by mouth once daily. 90 tablet 3:56 PM EDT02/27/2024ctive Clindamycin-Benzoyl Peroxide (NEUAC) 1.2 %(1 % base) -5 % gel Apply to face once daily 45 g 10:46 AM EST5Active tretinoin (RETIN-A) 0.025 % topical cream Apply pea size amount to entire face every other night at bedtime 45 g 6008/27/2024 10:46 AM EST5Active methylPREDNISolone (MEDROL DOSE-PACK) 4 mg Dose-Pack Take as directed on package 21 tablet 12/05/2024 2:46 PM EDT5Active acetaminophen (TYLENOL) 325 mg tablet 650 mg (2 x 325 mg) orally every 6 hours As Needed for pain for 5 days 30 tablet 5Active ondansetron (ZOFRAN) 4 mg tablet Take 1 tablet by mouth every 8 hours for 48 hours 6 tablet 01/20/2025 3:57 PM EDT5Active vit-iron fumarate-fa () 28 mg iron- 800 mcg tab Take 1 tablet by mouth once daily 30 tablet 01/21/2025 11:10 AM EDT5Active ondansetron orally disintegrating (ZOFRAN ODT) 4 mg disintegrating tablet Take 1 tablet (4 mg) by mouth every 6 (six) hours if needed for nausea or vomiting 30 tablet 11:10 AM EDT5Active promethazine (PHENERGAN) 12.5 mg tablet Take 1 tablet (12.5 mg) by mouth every 6 (six) hours if needed for nausea or vomiting 30 tablet 10:35 AM EDT5Active metoclopramide HCl (REGLAN) 10 mg tablet Take 1 tablet (10 mg) by mouth in the morning and 1 tablet (10 mg) at noon and 1 tablet (10 mg) in the evening. Take 30 minutes prior to meals as needed for nausea. 90 tablet 10:35 AM EDT5Active doxycycline hyclate (VIBRAMYCIN) 100 mg capsule 100 mg orally twice a day for 7 days 14 capsule 02/11/2025 1:16 PM EDT5Active HYDROcodone-acetaminophen (NORCO) 5-325 mg per tablet Take 1 tablet by mouth every 4 hours as needed for pain. 16 tablet 02/11/2025 1:16 PM EDT5Active ibuprofen (MOTRIN) 800 mg tablet Take 1 tablet by mouth every 8 hours as needed for pain. 40 tablet 02/11/2025 1:16 PM EDT5Active Social History Tobacco UseTypesPacks/DayYears UsedDateSmoking Tobacco: Never Assessed CommentsUnknownSex and Gender InformationValueDate RecordedSex Assigned at Not on fileLegal YnhEprrnp97/02/2012 8:34 AM ESTGender IdentityNot on fileSexual OrientationNot on file Plan of Treatment Health MaintenanceDue DateLast DoneCommentsPeds To Adult Transition Initial Dkgtomvyjc56/27/2015Peds To Adult Transition Annual Ynvemqszuv76/27/2017HPV Vaccine (1 - 3-dose series)2017Meningococcal B Vaccine (1 of 2 - Standard) 2018Anxiety Kkmtrofkt44/27/2021hlamydia Screening (18-24)2020 Depression Tttvggibx87/27/2021GC (Gonorrhea) Screening (18-24)2020HIV Ozcgxzbxz81/27/2021Hepatitis C Ozciuiopt89/27/2021TaP,Tdap,Td Vaccine (1 - Tdap)2021Hepatitis B Vaccine (1 of 3 - 19+ 3-dose series)2021 Cervical Cancer Wawifohuu44/27/2024ovid-19 Vaccine (1 - 2024- season) 2025Influenza Vaccine (#1)2025 Insurance Care Teams Team MemberRelationshipSpecialtyStart DateEnd Date John Mauricio MD PCP - GeneralPediatrics1
--- OUTSIDE RECORDS SUMMARY | 2025-05-28 20:47 | XMS_ITS | Clinical Summary ---
Author Organization [facility] Address [address] [place] [address] Care Team Providers Care Supervisor Type Photography Name Role Phone Prieto Heaton DO Primary Care Provider [phone] Allergies No known active allergies Medications No known medications Active Problems ProblemNoted DateDiagnosed DateMenorrhagia with regular cycle12/08/2022 Dysmenorrhea in udftvgzcpr33/25/2023 Encounters DateTypeDepartmentCare KkarHbzkpaswije68/12/2025 3:40 PM ESTProcedure Visit [facility] [address] [place] [address] Victor M Fernández DO Well woman exam with routine gynecological exam05/28/2025amboo flowsheet [facility] [address] [place] [address] Victor M Fernández DO 02/26/2025Results Follow-Up [facility] [address] [place] [address] Lyric Camejo LPN [facility] PREG QUANT HCG02/26/2025linisync Result Encounter [facility] External Department Unsolicited Victor M Fernández DO from Last 3 Months Family History RelationNameStatusCommentsFatherAliveMotherAlive Social History Tobacco UseTypesPacks/DayYears UsedDateSmoking Tobacco: Never Tobacco Cessation:Counseling Given: Not Answered Alcohol UseStandard Drinks/WeekCommentsNot Currently0 (1 standard drink = 0.6 oz pure alcohol)CommentsNoSex and Gender InformationValueDate RecordedSex Assigned at BirthNot on fileLegal AyvMauvyi75/15/2023 8:11 PM EDTGender Identity Not on fileSexual OrientationNot on file Last Filed Vital Signs Vital SignReadingTime TakenCommentsBlood Fnrbwfkc367/7005/28/2025 4:10 PM EST Pulse--Temperature--Respiratory Rate--Oxygen Saturation--Inhaled Oxygen Concentration--Akvmyz69.2 kg (124 lb)05/28/2025 4:10 PM IVYKpgwkt247.6 cm (5' 4 )12/08/2022 1:35 PM EDTBody Mass Index21.28012/08/2022 1:35 PM EDT Plan of Treatment Not on file Procedures Procedure NamePriorityDate/TimeAssociated DiagnosisCommentsTBH PREG QUANT HCG Qrottyl0502/26/2025 9:39 AM EDT from Last 3 Months Results * [facility] PREG QUANT HCG (02/26/2025 9:39 AM EDT)ComponentValueRef RangeTest Method Analysis TimePerformed AtPathologist SignatureHCG VAPNGEJROAWR83aHZ/mLTBH Comment: 5-50 ? 0.2-1 WEEK 50-500 ? 1-2 WEEKS 100-5,000 ?2-3 WEEKS 500-10,000 ? 3-4 WEEKS 1,000-50,000 ?? 4-5 WEEKS 10,000-100,000 5-6 WEEKS 15,000-200,000 6-8 WEEKS 10,000-100,000 2-3 MONTHS Specimen (Source)Anatomical Location / LateralityCollection Method / Volume Collection TimeReceived Time02/26/2025 9:39 AM EDT02/26/2025 9:42 AM EDT Narrative [facility] - 02/26/2025 10:16 AM EDT Authorizing ProviderResult TypeResult StatusCorey Jolene DOCLINISYNCFinal Result Performing OrganizationAddressCity/State/ZIP CodePhone Number [facility] from Last 3 Months Insurance * Guarantor: Dano Handley AAccount TypeRelation to PatientDate of BirthPhone Billing AddressPersonal/IkhduaOyeo49/27/2001 [address] [id number] Care Teams Team MemberRelationshipSpecialtyStart DateEnd Date Prieto Heaton DO [address] [place] [id number] PCP - GeneralFamily Medicine12/08/22
--- OUTSIDE RECORDS SUMMARY | 2025-05-28 20:47 | XMS_ITS | Encounter Summary ---
Author Organization [facility] Address [address] [place] [address] Care Team Providers Care Fusing Furnace Loader Name Role Phone Prieto Heaton DO Primary Care Provider Encounter Details DateTypeDepartmentCare Team (Latest Contact Info)Epfbutdiyaw20/12/2025Bamboo flowsheet [facility] [address] [place] [address] Victor M Fernández DO [address] Nahid Briones, [facility]11 Social History Tobacco UseTypesPacks/DayYears UsedDateSmoking Tobacco: NeverAlcohol UseStandard Drinks/WeekCommentsNot Currently0 (1 standard drink = 0.6 oz pure alcohol) CommentsNoSex and Gender InformationValueDate RecordedSex Assigned at BirthNot on fileLegal UthKpjbzn46/15/2023 8:11 PM EDTGender IdentityNot on file Sexual OrientationNot on filedocumented as of this encounter Plan of Treatment Not on file documented as of this encounter Visit Diagnoses Not on filedocumented in this encounter Care Teams Team MemberRelationshipSpecialtyStart DateEnd Date Prieto Heaton DO [address] [place] [address] PCP - GeneralFamily Medicine12/08/22documented as of this encounter
--- OUTSIDE RECORDS SUMMARY | 2025-05-28 20:47 | XMS_ITS | Clinical Summary ---
Author Organization [facility] Address [address] [place] [address] Phone Care Team Providers Care Joiner Apprentice Name Role Phone Evette Reeves Primary Care Provider [phone] Social History Tobacco UseTypesPacks/DayYears UsedDateSmoking Tobacco: Never Assessed CommentsUnknownSex and Gender InformationValueDate RecordedSex Assigned at Not on fileLegal WrcFhrudx52/26/2022 5:49 PM ESTGender IdentityNot on fileSexual OrientationNot on file Last Filed Vital Signs Vital SignReadingTime TakenCommentsBlood Vubenfky275/7011 10:09 AM EST Tlfqs006905/26/2020 10:09 AM ESTTemperature--Respiratory Rate--Oxygen Saturation 99%05/26/2020 10:09 AM ESTInhaled Oxygen Concentration--Jmbkjr41.2 kg (119 lb 8 oz)05/26/2020 10:09 AM PLLCzszmr321.5 cm (5' 4.75 )05/26/2020 10:09 AM ESTBody Mass Index20.04107/26/2019 10:09 AM EST Plan of Treatment Not on file Care Teams Team MemberRelationshipSpecialtyStart DateEnd Date Evette Reeves APRN-CNP [address] [place] [address] PCP - Gsedtoo25/16/17
== END 2025-05-28 20:40 | disposition home or self-care (01) ==
LOC: LAB 20:39
PROVIDERS: PCP Family Medicine; Visit Provider Obstetrics & Gynecology
DX: Z01.419 Encounter for gynecological examination (general) (routine) without abnormal findings (principal)
CPT/HCPCS: 88175